=== PATIENT | male | born 1975 | race Two or more races ===

== ENCOUNTER 2023-06-28 16:32 | Emergency (ER) | payer MEDICAID, OTHER ==
[~2023-06-28] VITALS: Ht 162.6 cm; Wt 84.8 kg
[2023-06-28 16:43] VITALS: TEMP 98.4
[2023-06-28 17:29] LABS: BASOPHILS # (AUTO) 0.1 K/uL (0.0-0.2); BASOPHILS % (AUTO) 0.6 % (0.0-2.0); EOSINOPHILS # (AUTO) 0.8 K/uL (0.0-0.7); EOSINOPHILS % (AUTO) 9.5 % (0.0-6.0); HEMATOCRIT 34 % (39-51); LYMPHOCYTES # (AUTO) 1.4 K/uL (0.8-4.8); LYMPHOCYTES % (AUTO) 17.1 % (20.0-44.0); MEAN CORPUSCULAR HEMOGLOBIN 26 PG (26.0-33.0); MEAN CORPUSCULAR HGB CONC 32 g/dl (31.0-36.0); MEAN CORPUSCULAR VOLUME 81 fL (80-96); MONOCYTES # (AUTO) 0.5 K/uL (0.1-1.30); MONOCYTES % (AUTO) 6.5 % (2.0-12.0); NEUTROPHILS # (AUTO) 5.4 K/uL (1.8-8.9); NEUTROPHILS % (AUTO) 66.3 % (43.0-81.0); PLATELET COUNT (AUTO) 374 K/uL (150-450); RED BLOOD CELL COUNT(AUTO) 4.19 MIL/uL (4.5-6.0); RED CELL DISTRIBUTION WIDTH 17.9 % (11.5-15.0); WHITE BLOOD COUNT (AUTO) 8.1 K/uL (4.3-11.0)
[2023-06-28 17:49] LABS: CALCIUM, SERUM 9.1 mg/dL (8.5-10.1); CARBON DIOXIDE 23 mmol/L (21-32); CHLORIDE 96 mmol/L (98-107); CREATININE 2.8 mg/dL (0.6-1.3); GLUCOSE 87 mg/dL (74-106); POTASSIUM 4.5 mmol/L (3.5-5.1); SODIUM SERUM 129 mmol/L (136-145); UREA NITROGEN, BLOOD 23 mg/dL (7-18)
[2023-06-28 18:02] LABS: ALANINE AMINOTRANSFERASE 58 U/L (12-78); ALBUMIN 3.1 g/dL (3.4-5.0); ALKALINE PHOSPHATASE 162 U/L (46-116); ASPARTATE AMINOTRANSFERASE 65 U/L (15-37); BILIRUBIN,DIRECT 0.3 mg/dL (0.0-0.2); BILIRUBIN,TOTAL 1.1 mg/dL (0.2-1.0); TOTAL PROTEIN, SERUM 9.9 g/dL (6.4-8.2)
[2023-06-28] MEDS ORDERED: MAGN400O6 PO (18:24)
[2023-06-28] MEDS ORDERED: TAMS-12 PO (18:24)
[2023-06-28] MEDS ORDERED: BISA10SU11 RC (18:24)
[2023-06-28] MEDS ORDERED: SENN-261 PO (18:24)
[2023-06-28] MEDS ORDERED: AMIO200T5 PO (18:24)
[2023-06-28] MEDS ORDERED: NA P133E RC (18:24)
[2023-06-28] MEDS ORDERED: ACET-2605 PO (18:24)
[2023-06-28] MEDS ORDERED: PANT40TA2 PO (18:24)
[2023-06-28] MEDS ORDERED: ACET-868 PO (18:24)
[2023-06-28] MEDS ORDERED: RIFA550T PO (18:24)
[2023-06-28] MEDS ORDERED: MORP15TA PO (18:24)
[2023-06-28 19:53] VITALS: BP 104/62; O2SAT 98
[2023-06-28 19:55] LABS: APPEARANCE,URINE Clear (CLEAR); BILIRUBIN,URINE MODERATE (NEGATIVE); BLOOD, URINE Negative Ery/uL (NEGATIVE); COLOR,URINE ORANGE (YELLOW); KETONES,URINE Trace mg/dL (NEGATIVE); LEUKOCYTE ESTERASE ,URINE Negative (NEGATIVE); NITRITE, URINE Negative (NEGATIVE); PH,URINE 5.5 (5.0-8.0); PROTEIN,URINE 100 mg/dl (NEGATIVE); UGLUCOSE Negative (NEGATIVE); UROBILINOGEN,URINE 0.2 EU/dL (0.2)
[2023-06-28 20:28] LABS: ADD URINE CULTURE NO; BACTERIA,URINE Few /HPF (None Seen); CALCIUM OXALATE CRYSTALS,UR Rare /HPF (None Seen); RBC,URINE 0-2 /HPF (0-2); SQUAMOUS EPITHELIAL CELL,UR Moderate /HPF (None Seen); URINE AMORPHOUS URATE Moderate /HPF (None Seen); WBC,URINE 0-2 /HPF (0-3)
== END 2023-06-28 20:08 | disposition home or self-care (01) ==
LOC: ER 16:43
DX: R10.9 Unspecified abdominal pain (principal); I48.91 Unspecified atrial fibrillation; Z79.899 Other long term (current) drug therapy
CPT/HCPCS: 36415; 80048-TC; 80076-TC; 81001; 84484-TC; 85025-TC

== ENCOUNTER 2023-07-04 22:27 | Inpatient (IN) | payer OTHER ==
[~2023-07-04] VITALS: Ht 160 cm; Wt 82.1 kg
[~2023-07-04 22:27] MED LIST: ACET-2605 PO; ACET-868 PO; AMIO200T5 PO; BISA10SU11 RC; MAGN400O6 PO; MORP15TA PO; NA P133E RC; PANT40TA2 PO; RIFA550T PO; SENN-261 PO; TAMS-12 PO
[2023-07-05 01:06] LABS: BASOPHILS % (AUTO) 0.4 % (0.0-2.0); EOSINOPHILS # (AUTO) 0.1 K/uL (0.0-0.7); EOSINOPHILS % (AUTO) 0.6 % (0.0-6.0); HEMATOCRIT 38 % (39-51); HEMOGLOBIN 12.7 g/dL (13.5-17.5); LYMPHOCYTES # (AUTO) 0.9 K/uL (0.8-4.8); LYMPHOCYTES % (AUTO) 10.5 % (20.0-44.0); MEAN CORPUSCULAR HEMOGLOBIN 27 PG (26.0-33.0); MEAN CORPUSCULAR HGB CONC 33 g/dl (31.0-36.0); MEAN CORPUSCULAR VOLUME 82 fL (80-96); MONOCYTES % (AUTO) 11.7 % (2.0-12.0); NEUTROPHILS # (AUTO) 6.3 K/uL (1.8-8.9); NEUTROPHILS % (AUTO) 76.8 % (43.0-81.0); PLATELET COUNT (AUTO) 255 K/uL (150-450); RED BLOOD CELL COUNT(AUTO) 4.69 MIL/uL (4.5-6.0); RED CELL DISTRIBUTION WIDTH 18.3 % (11.5-15.0); WHITE BLOOD COUNT (AUTO) 8.2 K/uL (4.3-11.0)
[2023-07-05 01:33] LABS: ALBUMIN 3.3 g/dL (3.4-5.0); BILIRUBIN,TOTAL 0.9 mg/dL (0.2-1.0); CALCIUM, SERUM 8.5 mg/dL (8.5-10.1); LACTIC ACID 1.2 mmol/L (0.4-2.0)
[2023-07-05 01:34] LABS: CREATININE 11.2 mg/dL (0.6-1.3); POTASSIUM 7.4 mmol/L (3.5-5.1)
[2023-07-05 01:55] LABS: APPEARANCE,URINE CLEAR (CLEAR); BILIRUBIN,URINE 2+ (NEGATIVE); BLOOD, URINE NEGATIVE Ery/uL (NEGATIVE); COLOR,URINE DARK YELLOW (YELLOW); KETONES,URINE TRACE mg/dL (NEGATIVE); LEUKOCYTE ESTERASE ,URINE TRACE (NEGATIVE); NITRITE, URINE NEGATIVE (NEGATIVE); PROTEIN,URINE 1+ mg/dl (NEGATIVE); UGLUCOSE NEGATIVE (NEGATIVE)
[2023-07-05] MEDS: SODIUM POLYSTYRENE SULFONATE 15 G/60 ML BOTTLE PO ONE ×2 (02:00→06:06)
[2023-07-05] MEDS: SODIUM BICARBONATE SYR 50 MEQ/50 ML DISP.SYRIN IV ONE ×2 (02:00→06:06)
[2023-07-05 02:26] LABS: ADD URINE CULTURE YES; BACTERIA,URINE 1+ /HPF (None Seen); MUCUS,URINE Moderate /LPF (None Seen); RBC,URINE 0-2 /HPF (0-2)
[2023-07-05] MEDS ORDERED: Calcium Gluconate 0.465 MEQ/ML VIAL IV ONE (02:36)
[2023-07-05] MEDS: Calcium Gluconate 1GM/10ML 4.65 MEQ in IV NS 0.9% 100 ML IV ONE (02:45)
[2023-07-05] MEDS ORDERED: SODIUM BICARBONATE SYR 50 MEQ/50 ML DISP.SYRIN ONE ×2 (03:09→05:41)
[2023-07-05] MEDS ORDERED: INSULIN REGULAR, HUMAN 100 UNIT/ML 10 ML VIAL ONE (03:09)
[2023-07-05] MEDS ORDERED: DEXTROSE 50%-WATER 50 ML DISP.SYRIN ONE (03:09)
[2023-07-05] MEDS: DEXTROSE 50%-WATER 50 ML DISP.SYRIN IVP ONE (03:10)
[2023-07-05] MEDS: INSULIN REGULAR, HUMAN 100 UNIT/ML 10 ML VIAL IV ONE (03:15)
[2023-07-05] MEDS ORDERED: ONDANSETRON HCL/PF 4 MG/2 ML VIAL ONE (03:44)
[2023-07-05] MEDS ORDERED: SODIUM POLYSTYRENE SULFONATE 15 G/60 ML BOTTLE ONE ×2 (03:44→05:39)
[2023-07-05] MEDS ORDERED: MORPHINE SULFATE INJ 4 MG/ML DISP.SYRIN ONE (03:45)
[2023-07-05] MEDS: MORPHINE SULFATE INJ 2 MG/ML DISP.SYRIN IV ONE (03:59)
[2023-07-05] MEDS: ONDANSETRON HCL/PF - ER 4 MG/2 ML VIAL IV ONE (03:59)
[2023-07-05 04:01] LABS: CALCIUM, SERUM 8.3 mg/dL (8.5-10.1); POTASSIUM 6.1 mmol/L (3.5-5.1)
[2023-07-05] MEDS ORDERED: IV Sodium Chloride 3% 500 ML 500 ML IV ONE (04:13)
[2023-07-05 04:15] LABS: CREATININE 11.3 mg/dL (0.6-1.3)
[2023-07-05] MEDS: IV NS 0.9% 500 ML IV ONE ×3 (04:30→09:33)
[2023-07-05] MEDS: IV Sodium Chloride 3% 500 ML 100 ML IV ONE (04:44)
[2023-07-05] MEDS: IV NS 0.9% 1,000 ML BAG IV ONE (06:00)
[2023-07-05] MEDS ORDERED: LIDOCAINE 2% JEL UROJET 10 ML MM ONE (06:36)
[2023-07-05 07:22] LABS: BASOPHILS % (AUTO) 0.6 % (0.0-2.0); EOSINOPHILS # (AUTO) 0.1 K/uL (0.0-0.7); EOSINOPHILS % (AUTO) 1.3 % (0.0-6.0); HEMATOCRIT 30 % (39-51); HEMOGLOBIN 10.1 g/dL (13.5-17.5); LYMPHOCYTES # (AUTO) 0.9 K/uL (0.8-4.8); LYMPHOCYTES % (AUTO) 12.2 % (20.0-44.0); MEAN CORPUSCULAR HEMOGLOBIN 27 PG (26.0-33.0); MEAN CORPUSCULAR HGB CONC 34 g/dl (31.0-36.0); MEAN CORPUSCULAR VOLUME 79 fL (80-96); MONOCYTES % (AUTO) 14.4 % (2.0-12.0); NEUTROPHILS # (AUTO) 5.1 K/uL (1.8-8.9); NEUTROPHILS % (AUTO) 71.5 % (43.0-81.0); PLATELET COUNT (AUTO) 254 K/uL (150-450); RED BLOOD CELL COUNT(AUTO) 3.78 MIL/uL (4.5-6.0); RED CELL DISTRIBUTION WIDTH 18.1 % (11.5-15.0); WHITE BLOOD COUNT (AUTO) 7.2 K/uL (4.3-11.0)
[2023-07-05] MEDS ORDERED: CEFTRIAXONE 1GM BAG (ER ONLY) 50 ML IV ONE (07:34)
[2023-07-05] MEDS ORDERED: MICO25PO2 TP (07:36)
[2023-07-05] MEDS ORDERED: [UNRECOGNIZED DRUG - OTHER] TP (07:36)
[2023-07-05] MEDS: CEFTRIAXONE 1 G in IV D5W 50 ML IV SCH (07:41)
[2023-07-05 07:56] LABS: CALCIUM, SERUM 7.9 mg/dL (8.5-10.1)
[2023-07-05 08:02] LABS: CREATININE 8.9 mg/dL (0.6-1.3)
[2023-07-05 08:30] VITALS: BP 99/69; TEMP 97.7; O2SAT 98
[2023-07-05] MEDS: FUROSEMIDE 20 MG/2 ML VIAL IV STA (09:34)
[2023-07-05] MEDS: IV NS 0.9% 1,000 ML BAG IV SCH (11:47)
[2023-07-05] MEDS ORDERED: NA PHOS,M-B/NA PHOS,DI-BA 1 EA ENEMA RC PRN (12:00)
[2023-07-05] MEDS ORDERED: MAGNESIUM HYDROXIDE 30 ML UDC PO PRN (12:00)
[2023-07-05] MEDS ORDERED: BISACODYL SUPP (10 MG) 10 MG/SUPP.RECT SUPP.RECT RC PRN (12:00)
[2023-07-05] MEDS ORDERED: ACETAMINOPHEN ES 500 MG TABLET PO PRN (12:00)
[2023-07-05] MEDS ORDERED: ACETAMINOPHEN 325 MG TABLET PO PRN (12:00)
[2023-07-05] MEDS: MORPHINE SULFATE IR 15 MG TABLET PO PRN (12:13)
[2023-07-05 12:46] LABS: POTASSIUM 5.8 mmol/L (3.5-5.1)
[2023-07-05 13:00] VITALS: BP 98/64; TEMP 97.6; O2SAT 98
[2023-07-05 13:00] LABS: CREATININE 8.9 mg/dL (0.6-1.3)
[2023-07-05 13:12] LABS: ALBUMIN 2.8 g/dL (3.4-5.0); BILIRUBIN,DIRECT 0.3 mg/dL (0.0-0.2); BILIRUBIN,TOTAL 0.9 mg/dL (0.2-1.0); TOTAL PROTEIN, SERUM 9.3 g/dL (6.4-8.2)
[2023-07-05] MEDS ORDERED: TPN/PPN PER PHARMACY IV PRN (13:30)
[2023-07-05] MEDS: MORPHINE SULFATE INJ 4 MG/ML DISP.SYRIN IV ONE (13:45)
[2023-07-05] MEDS: IV NS 0.9% 1,000 ML IV ONE ×2 (13:46→17:55)
[2023-07-05] MEDS ORDERED: DEXTROSE 50%-WATER 50 ML DISP.SYRIN IV PRN (14:30)
[2023-07-05] MEDS: TPN BAG #1 IV SCH (15:32)
[2023-07-05] MEDS: IV NS 0.9% 1,000 ML IV PRN (15:33)
[2023-07-05 15:46] LABS: MAGNESIUM 0.9 mg/dL (1.8-2.4); PHOSPHORUS 8.3 mg/dL (2.5-4.9)
[2023-07-05 16:00] VITALS: BP 81/68; TEMP 96.6; O2SAT 94
[2023-07-05] MEDS: Magnesium 1GM/D5W 100ML PREMIX 100 ML IV SCH (16:18)
[2023-07-05] MEDS: RIFAXIMIN 550 MG TABLET PO SCH (16:18)
[2023-07-05 16:46] LABS: CALCIUM, SERUM 7.1 mg/dL (8.5-10.1); POTASSIUM 5.5 mmol/L (3.5-5.1)
[2023-07-05 17:00] VITALS: BP 79/48; TEMP 96.6; O2SAT 94
[2023-07-05 17:54] LABS: CREATININE 8.5 mg/dL (0.6-1.3)
[2023-07-05] MEDS: BLOOD SUGAR DIAGNOSTIC 1 EACH STRIP IN SCH (17:55)
[2023-07-05] MEDS: ALBUMIN 25% 25 GM in PREMIX 1 EA IV SCH (18:18)
[2023-07-05 20:00] VITALS: BP 109/53; TEMP 98.2; O2SAT 94
[2023-07-05] MEDS: SENNOSIDES 8.6 MG TABLET PO SCH (21:24)
[2023-07-05] MEDS: TAMSULOSIN 0.4 MG CAP.SR.24H PO SCH (21:24)
[2023-07-05] MEDS: MORPHINE SULFATE INJ 2 MG/ML DISP.SYRIN IV PRN (22:16)
[2023-07-06] VITALS: BP 100/61; TEMP 98.6; O2SAT 96
[2023-07-06 04:00] VITALS: BP 98/63; TEMP 98.4; O2SAT 97
[2023-07-06 07:36] LABS: BILIRUBIN,TOTAL 0.8 mg/dL (0.2-1.0); CALCIUM, SERUM 7.2 mg/dL (8.5-10.1); CREATININE 3.1 mg/dL (0.6-1.3); MAGNESIUM 1.6 mg/dL (1.8-2.4); PHOSPHORUS 3.7 mg/dL (2.5-4.9); POTASSIUM 3.4 mmol/L (3.5-5.1); TOTAL PROTEIN, SERUM 6.3 g/dL (6.4-8.2)
[2023-07-06 07:48] LABS: CHOLESTEROL 88 mg/dL (<200); HDL CHOLESTEROL 25 mg/dL (40-60); LDL 43 mg/dL (0-99); TRIGLYCERIDES 170 mg/dL (30-150)
[2023-07-06 07:52] LABS: THYROID STIMULATING HORMONE 0.332 uIU/mL (0.358-3.74)
[2023-07-06] MEDS: PANTOPRAZOLE 40 MG TABLET.DR PO SCH (07:53)
[2023-07-06 08:00] VITALS: BP 95/50; TEMP 97.9; O2SAT 95
[2023-07-06] MEDS: CEFTRIAXONE 1 G in IV D5W 50 ML IV SCH (08:14)
[2023-07-06] MEDS: AMIODARONE HCL 200 MG TABLET PO SCH (08:15)
[2023-07-06 08:33] LABS: BASOPHILS % (AUTO) 0.6 % (0.0-2.0); EOSINOPHILS # (AUTO) 0.2 K/uL (0.0-0.7); EOSINOPHILS % (AUTO) 5.6 % (0.0-6.0); HEMATOCRIT 24 % (39-51); HEMOGLOBIN 7.9 g/dL (13.5-17.5); LYMPHOCYTES # (AUTO) 0.5 K/uL (0.8-4.8); LYMPHOCYTES % (AUTO) 16.5 % (20.0-44.0); MEAN CORPUSCULAR HEMOGLOBIN 27 PG (26.0-33.0); MEAN CORPUSCULAR HGB CONC 33 g/dl (31.0-36.0); MEAN CORPUSCULAR VOLUME 81 fL (80-96); MONOCYTES # (AUTO) 0.6 K/uL (0.1-1.30); MONOCYTES % (AUTO) 17.4 % (2.0-12.0); NEUTROPHILS % (AUTO) 59.9 % (43.0-81.0); PLATELET COUNT (AUTO) 152 K/uL (150-450); RED BLOOD CELL COUNT(AUTO) 2.95 MIL/uL (4.5-6.0); RED CELL DISTRIBUTION WIDTH 17.9 % (11.5-15.0); WHITE BLOOD COUNT (AUTO) 3.3 K/uL (4.3-11.0)
[2023-07-06] MEDS ORDERED: Potassium Chloride 10 MEQ in IV D5/ 0.9% NACL 1,000 ML IV SCH (09:00)
[2023-07-06] MEDS: INSULIN REGULAR, HUMAN 100 UNIT/ML 3 ML VIAL SQ PRN (11:46)
[2023-07-06 12:00] VITALS: BP 97/52; TEMP 98.2; O2SAT 94
[2023-07-06] MEDS ORDERED: TPN BAG #2 IV SCH (12:00)
[2023-07-06] MEDS: Potassium Chloride 10 MEQ in IV D5/ 0.9% NACL 1,000 ML IV SCH (12:04)
[2023-07-06] MEDS: TPN BAG #2 IV SCH (12:17)
[2023-07-06] MEDS: Magnesium 1GM/D5W 100ML PREMIX 100 ML IV SCH (13:05)
[2023-07-06 14:10] LABS: ANISOCYTOSIS 1+; EOSINOPHILS % (MANUAL) 6 % (0-4); LYMPHOCYTES % (MANUAL) 16 % (16-48); MONOCYTES % (MANUAL) 18 % (0-11.0); NEUTROPHILS % (MANUAL) 60 (42-76); PLATELET ESTIMATE ADEQUATE
[2023-07-06 16:00] VITALS: BP 96/53; TEMP 98.2; O2SAT 97
[2023-07-06 17:11] LABS: URIC ACID 5.5 mg/dL (2.6-7.2)
[2023-07-06 20:00] VITALS: BP 96/55; TEMP 98.2; O2SAT 98
[2023-07-07] VITALS: BP 96/56; TEMP 98.6; O2SAT 95
[2023-07-07 04:00] VITALS: BP 105/59; TEMP 97.7; O2SAT 98
[2023-07-07 08:00] VITALS: BP 132/59; TEMP 97.9; O2SAT 98
[2023-07-07 08:11] LABS: PTH, INTACT 54 pg/mL (15-65)
[2023-07-07] MEDS: Potassium Chloride 10 MEQ in IV D5/ 0.9% NACL 1,000 ML IV SCH ×2 (08:22→21:11)
[2023-07-07] MEDS ORDERED: DIATR MEGLU/DIATRIZOATE SODIUM 120 ML BOTTLE (GASTROGRAPHIN) ONE (10:33)
[2023-07-07] MEDS: TPN BAG #3 IV SCH (11:58)
[2023-07-07 12:00] VITALS: BP 145/75; TEMP 97.8; O2SAT 98
[2023-07-07 12:10] LABS: *SPE A/G RATIO 0.7 (0.7-1.7); *SPE ALBUMIN 2.5 g/dL (2.9-4.4); *SPE ALPHA-1-GLOBULIN 0.2 g/dL (0.0-0.4); *SPE ALPHA-2-GLOBULIN 0.6 g/dL (0.4-1.0); *SPE BETA GLOBULIN 0.8 g/dL (0.7-1.3); *SPE GLOBULIN, TOTAL 3.4 g/dL (2.2-3.9); *SPE M-SPIKE Not Observed g/dL (Not Observed); *SPE PROTEIN TOTAL 5.9 g/dL (6.0-8.5); *SPEGAMMA GLOBULIN 1.7 g/dL (0.4-1.8)
[2023-07-07 12:58] LABS: CALCIUM, SERUM 8.2 mg/dL (8.5-10.1); CREATININE 1.7 mg/dL (0.6-1.3); MAGNESIUM 1.6 mg/dL (1.8-2.4); PHOSPHORUS 3.1 mg/dL (2.5-4.9); POTASSIUM 3.2 mmol/L (3.5-5.1)
[2023-07-07 13:08] LABS: HEPATITIS B CORE AB, IgM Negative (Negative); HEPATITIS B CORE AB, TOTAL Negative (Negative); HEPATITIS B SURFACE AB Reactive (.)
[2023-07-07 13:28] LABS: BASOPHILS % (AUTO) 0.6 % (0.0-2.0); EOSINOPHILS # (AUTO) 0.4 K/uL (0.0-0.7); EOSINOPHILS % (AUTO) 8.8 % (0.0-6.0); HEMATOCRIT 23 % (39-51); HEMOGLOBIN 7.7 g/dL (13.5-17.5); LYMPHOCYTES # (AUTO) 0.6 K/uL (0.8-4.8); LYMPHOCYTES % (AUTO) 14.5 % (20.0-44.0); MEAN CORPUSCULAR HEMOGLOBIN 27 PG (26.0-33.0); MEAN CORPUSCULAR HGB CONC 33 g/dl (31.0-36.0); MEAN CORPUSCULAR VOLUME 81 fL (80-96); MONOCYTES # (AUTO) 0.6 K/uL (0.1-1.30); MONOCYTES % (AUTO) 13.5 % (2.0-12.0); NEUTROPHILS # (AUTO) 2.7 K/uL (1.8-8.9); NEUTROPHILS % (AUTO) 62.6 % (43.0-81.0); PLATELET COUNT (AUTO) 180 K/uL (150-450); RED BLOOD CELL COUNT(AUTO) 2.88 MIL/uL (4.5-6.0); RED CELL DISTRIBUTION WIDTH 17.9 % (11.5-15.0); WHITE BLOOD COUNT (AUTO) 4.4 K/uL (4.3-11.0)
[2023-07-07 16:00] VITALS: BP 106/62; TEMP 98.1; O2SAT 98
[2023-07-07 20:00] VITALS: BP 128/79; TEMP 98.2; O2SAT 98
[2023-07-08] VITALS: BP 116/69; TEMP 98; O2SAT 97
[2023-07-08 04:00] VITALS: BP 111/74; TEMP 98; O2SAT 98
[2023-07-08 07:30] LABS: BASOPHILS % (AUTO) 0.7 % (0.0-2.0); EOSINOPHILS # (AUTO) 0.4 K/uL (0.0-0.7); EOSINOPHILS % (AUTO) 10.6 % (0.0-6.0); HEMATOCRIT 23 % (39-51); HEMOGLOBIN 7.5 g/dL (13.5-17.5); LYMPHOCYTES # (AUTO) 0.7 K/uL (0.8-4.8); LYMPHOCYTES % (AUTO) 16.2 % (20.0-44.0); MEAN CORPUSCULAR HEMOGLOBIN 27 PG (26.0-33.0); MEAN CORPUSCULAR HGB CONC 33 g/dl (31.0-36.0); MEAN CORPUSCULAR VOLUME 82 fL (80-96); MONOCYTES # (AUTO) 0.5 K/uL (0.1-1.30); MONOCYTES % (AUTO) 12.6 % (2.0-12.0); NEUTROPHILS # (AUTO) 2.6 K/uL (1.8-8.9); NEUTROPHILS % (AUTO) 59.9 % (43.0-81.0); PLATELET COUNT (AUTO) 189 K/uL (150-450); RED BLOOD CELL COUNT(AUTO) 2.77 MIL/uL (4.5-6.0); RED CELL DISTRIBUTION WIDTH 17.2 % (11.5-15.0); WHITE BLOOD COUNT (AUTO) 4.2 K/uL (4.3-11.0)
[2023-07-08 08:00] VITALS: BP 101/60; TEMP 97.9; O2SAT 98
[2023-07-08 08:09] LABS: CREATININE 1.6 mg/dL (0.6-1.3); MAGNESIUM 1.3 mg/dL (1.8-2.4); PHOSPHORUS 2.5 mg/dL (2.5-4.9); POTASSIUM 3.2 mmol/L (3.5-5.1)
[2023-07-08] MEDS: POTASSIUM CL. PREMIX PERIPHER. 50 ML IV SCH (09:20)
[2023-07-08] MEDS: Magnesium 1GM/D5W 100ML PREMIX 100 ML IV SCH (09:21)
[2023-07-08] MEDS: TPN BAG #4 IV SCH (11:25)
[2023-07-08 12:00] VITALS: BP 108/62; TEMP 97.7; O2SAT 98
[2023-07-08 16:00] VITALS: BP 103/68; TEMP 98.4; O2SAT 98
[2023-07-08 22:28] VITALS: BP 106/71; TEMP 98.1; O2SAT 98
[2023-07-09 04:00] VITALS: BP 109/75; TEMP 98.6; O2SAT 98
[2023-07-09 08:00] VITALS: BP 112/75; TEMP 97.4; O2SAT 98
[2023-07-09 08:46] LABS: BASOPHILS % (AUTO) 0.6 % (0.0-2.0); EOSINOPHILS # (AUTO) 0.5 K/uL (0.0-0.7); EOSINOPHILS % (AUTO) 10.6 % (0.0-6.0); HEMATOCRIT 23 % (39-51); HEMOGLOBIN 7.7 g/dL (13.5-17.5); LYMPHOCYTES # (AUTO) 0.9 K/uL (0.8-4.8); LYMPHOCYTES % (AUTO) 19.1 % (20.0-44.0); MEAN CORPUSCULAR HEMOGLOBIN 27 PG (26.0-33.0); MEAN CORPUSCULAR HGB CONC 33 g/dl (31.0-36.0); MEAN CORPUSCULAR VOLUME 82 fL (80-96); MONOCYTES # (AUTO) 0.5 K/uL (0.1-1.30); MONOCYTES % (AUTO) 9.7 % (2.0-12.0); NEUTROPHILS # (AUTO) 2.9 K/uL (1.8-8.9); PLATELET COUNT (AUTO) 223 K/uL (150-450); RED BLOOD CELL COUNT(AUTO) 2.85 MIL/uL (4.5-6.0); RED CELL DISTRIBUTION WIDTH 17.1 % (11.5-15.0); WHITE BLOOD COUNT (AUTO) 4.8 K/uL (4.3-11.0)
[2023-07-09 10:08] LABS: CALCIUM, SERUM 8.6 mg/dL (8.5-10.1); CREATININE 1.4 mg/dL (0.6-1.3); MAGNESIUM 1.3 mg/dL (1.8-2.4); PHOSPHORUS 2.4 mg/dL (2.5-4.9); POTASSIUM 3.3 mmol/L (3.5-5.1)
[2023-07-09] MEDS ORDERED: TPN BAG #5 IV SCH (10:30)
[2023-07-09] MEDS: TPN BAG #5 IV SCH (11:50)
[2023-07-09] MEDS: Magnesium 1GM/D5W 100ML PREMIX 100 ML IV SCH (11:55)
[2023-07-09 12:00] VITALS: BP 110/72; TEMP 97.8; O2SAT 98
[2023-07-09 16:00] VITALS: BP 112/75; TEMP 97.9; O2SAT 98
[2023-07-09] MEDS: POTASSIUM CL. PREMIX PERIPHER. 50 ML IV SCH (16:25)
[2023-07-09 20:00] VITALS: BP 109/67; TEMP 98.6; O2SAT 98
[2023-07-10 03:20] VITALS: BP 115/75; O2SAT 97
[2023-07-10 04:00] VITALS: BP 105/68; TEMP 98.5; O2SAT 98
[2023-07-10 08:00] VITALS: BP 110/74; TEMP 98.6; O2SAT 98
[2023-07-10 10:26] LABS: CALCIUM, SERUM 8.4 mg/dL (8.5-10.1); MAGNESIUM 1.5 mg/dL (1.8-2.4); PHOSPHORUS 2.3 mg/dL (2.5-4.9); POTASSIUM 3.3 mmol/L (3.5-5.1)
[2023-07-10] MEDS: TPN BAG #6 IV SCH (11:41)
[2023-07-10] MEDS: Magnesium 1GM/D5W 100ML PREMIX 100 ML IV SCH (11:47)
[2023-07-10] MEDS: POTASSIUM CL. PREMIX PERIPHER. 50 ML IV SCH (15:32)
[2023-07-10 16:00] VITALS: BP 130/70; TEMP 98.2; O2SAT 98
[2023-07-10] MEDS: POTASSIUM PHOSPHATE MM 15 MMOL in IV NS 0.9% 250 ML IV SCH (17:51)
[2023-07-10 20:00] VITALS: BP 114/67; TEMP 98.6; O2SAT 98
== END 2023-07-10 21:37 | DRG 682 ==
LOC: ER 22:29 → TELE1 07-05 07:49 → TELE-TD 07-05 13:01 → MEDSG1 07-07 12:01
PROVIDERS: ADMIT Nurse Practitioner Family; ATTEND Internal Medicine
PROC: 05HM33Z Insertion of Infusion Device into Right Internal Jugular Vein, Percutaneous Approach (ICD-10-PCS; principal; 2023-07-05)
PROC: B543ZZA Ultrasonography of Right Jugular Veins, Guidance (ICD-10-PCS; 2023-07-05)
PROC: 5A1D70Z Performance of Urinary Filtration, Intermittent, Less than 6 Hours Per Day (ICD-10-PCS; 2023-07-05)
PROC: 02HV33Z Insertion of Infusion Device into Superior Vena Cava, Percutaneous Approach (ICD-10-PCS; 2023-07-09)
PROC: B548ZZA Ultrasonography of Superior Vena Cava, Guidance (ICD-10-PCS; 2023-07-09)
DX: N17.9 Acute kidney failure, unspecified (principal); D66 Hereditary factor VIII deficiency; B19.10 Unspecified viral hepatitis B without hepatic coma; N39.0 Urinary tract infection, site not specified; K31.6 Fistula of stomach and duodenum; E87.1 Hypo-osmolality and hyponatremia; E87.20 Acidosis, unspecified; E86.0 Dehydration; N18.9 Chronic kidney disease, unspecified; K74.60 Unspecified cirrhosis of liver; Z20.822 Contact with and (suspected) exposure to COVID-19; I48.91 Unspecified atrial fibrillation; Z93.3 Colostomy status; Z87.19 Personal history of other diseases of the digestive system; Z79.899 Other long term (current) drug therapy; E87.5 Hyperkalemia; Z90.49 Acquired absence of other specified parts of digestive tract; R74.01 Elevation of levels of liver transaminase levels; N40.0 Benign prostatic hyperplasia without lower urinary tract symptoms; M89.8X9 Other specified disorders of bone, unspecified site; F43.23 Adjustment disorder with mixed anxiety and depressed mood; F17.200 Nicotine dependence, unspecified, uncomplicated; Z83.2 Family history of diseases of the blood and blood-forming organs and certain disorders involving the immune mechanism; K81.9 Cholecystitis, unspecified; B19.20 Unspecified viral hepatitis C without hepatic coma; E86.9 Volume depletion, unspecified; K59.00 Constipation, unspecified; E87.8 Other disorders of electrolyte and fluid balance, not elsewhere classified; D64.9 Anemia, unspecified
CPT/HCPCS: 36415; 36569; 71045-TC; 74018; 74250-TC; 76770-TC; 80048-TC; 80053-TC; 80061-TC; 80076-TC; 81001; 82550-TC; 82962-TC; 83605-TC; 83690-TC; 83735-TC; 83970; 84100-TC; 84134-TC; 84155; 84165; 84443-TC; 84550-TC; 85025-TC; 86704; 86705; 86706; 86803; 87040-TC; 87081-TC; 87086-TC; 87340; 90935-TC; A4216; A4223; G0378; J0610; J0696; J1815; J2270; J2405; J3475; J3480; J3490; J7030; J7040; J7042; J7050; J7060; P9047; Q9963